=== PATIENT | male | born 1940 | race Caucasian/White ===

== ENCOUNTER → 2016-07-30 | Outpatient (CLI) | payer MEDICARE, OTHER ==
[~2016-07-30] MED LIST: ASPIRIN 81MG TA81 MG PO; METFORMIN500 MG PO; PREDNISONE 20MG20 MG PO; PROTONIX 40MG T40 MG PO; TYLENOL W/CODEI1 TA2 PO
[2016-07-30 13:22] LABS: HEMOGLOBIN 16.8 g/dL (14.1-18.0); LYMPH # 1.8 K/mm3 (0.7-4.5)
--- NOTE | 2016-07-30 13:57 | RADIOLOGY REPORT PS360 ---
FOOT-LT-3 VIEWS HISTORY: LEFT FOOT PAIN ORDERING PHYSICIAN: SIXTO WYATT APRN PATIENT AGE: 75 years COMPARISON: None FINDINGS: No fracture or dislocation. No lytic or blastic change. Minimal osteoarthritic changes are present at the first metatarsophalangeal joint. No lytic or blastic change no erosive changes. Small calcaneal spur incidentally noted. Mild spurring is present at the tarsometatarsal junction seen on the lateral view. Generalized vascular calcifications also noted. IMPRESSION: 1. Mild osteoarthritic changes, no acute finding
== END ==
LOC: LAB 13:12
PROVIDERS: Nurse Practitioner Family
DX: M79.672 Pain in left foot (principal)

== ENCOUNTER → 2016-12-25 | Outpatient (CLI) | payer MEDICARE, OTHER ==
--- NOTE | 2016-12-25 11:47 | CARDIOVASCULAR REPORT ---
"Venous Exam Indications: 782.3 Edema. IMPRESSIONS 1. There is no evidence of significant Reflux. 2. No evidence of deep or superficial vein thrombosis involving the right lower extremity Right lower extremity venous duplex evaluation. Doppler flow study including spectral analysis, color and reyes scale imaging. Location: Vascular laboratory. Patient status: Outpatient. Tables: Venous flow and imaging: + +-------+ + |Location |Overall|Flow properties | + +-------+ + |Right common femoral |Patent |Normal phasicity; spontaneous; | | | |normal augmentation; compressible| + +-------+ + |Right saphenofemoral junction|Patent |Compressible | + +-------+ + |Right profunda femoral |Patent |Compressible | + +-------+ + |Right femoral |Patent |Normal phasicity; spontaneous; | | | |normal augmentation; compressible| + +-------+ + |Right greater saphenous |Patent |Normal phasicity; spontaneous; | | | |normal augmentation; compressible| + +-------+ + |Right popliteal |Patent |Normal phasicity; spontaneous; | | | |normal augmentation; compressible| + +-------+ + |Right posterior tibial |Patent |Compressible | + +-------+ + |Right peroneal |Patent |Compressible | + +-------+ + |Right gastrocnemius |Patent |Compressible | + +-------+ + |Right soleal |Patent |Compressible | + +-------+ + (Report amended ) Electronically signed by: Rashi Mobley [id number]"
== END ==
LOC: RT 10:54
DX: R60.9 Edema, unspecified (principal); M79.604 Pain in right leg

== ENCOUNTER → 2017-01-09 | Outpatient (CLI) | payer MEDICARE, OTHER ==
--- NOTE | 2017-01-09 13:09 | RADIOLOGY REPORT PS360 ---
History and Indications: Diabetes, chest pain, abnormal EKG. Procedure: Patient received a 0.4 mg of Lexiscan, resting heart rate was 69 bpm, resting blood pressure 178/96, with Lexiscan maximum heart rate achieved was 94 bpm which is less than 85% of the maximum predicted heart rate, and a blood pressure 167/90, with Lexiscan patient complained of shortness of breath, discomfort. Electrocardiogram: Resting electrocardiogram showed sinus rhythm, with Lexiscan there is less than 1.[address] segment depression noted from the baseline EKG. The EKG portion of the Lexiscan Myoview is nondiagnostic. Cardiac stress and resting SPECT images: Cardiac stress and rest spect images were obtained using technetium 99 Myoview 10.9 mCi at rest and 32.4 mCi at stress, gated SPECT further analysis of segmental wall motion and calculation of the ejection fraction. Cardiac stress and rest SPECT images show a mild fixed defect in the anterior wall with normal contractility in the gated is likely secondary to soft tissue attenuation from the diaphragm, no reversible ischemia seen. The computer derived ejection fraction is 59% with no obvious regional wall motion abnormality, right ventricle is normal size and contractility. Conclusion: 1. The EKG portion of the Lexiscan Myoview is nondiagnostic. 2. No obvious scintigraphic evidence of reversible ischemia seen. Computer derived ejection fraction is 59% no obvious regional wall motion abnormality, right ventricle is normal size and contractility.
== END ==
LOC: RAD 07:00
DX: R07.9 Chest pain, unspecified (principal); R94.31 Abnormal electrocardiogram [ECG] [EKG]; E11.9 Type 2 diabetes mellitus without complications
CPT/HCPCS: A9502; J2785

== ENCOUNTER → 2017-01-23 | Outpatient (CLI) | payer MEDICARE, OTHER ==
--- NOTE | 2017-01-23 14:42 | RADIOLOGY REPORT PS360 ---
US [id number] HISTORY: PROTIENURIA ORDERING PHYSICIAN: Precious Hernandez APRN PATIENT AGE: 76 years COMPARISON: None FINDINGS: RIGHT KIDNEY:Unremarkable. Normal size and echogenicity. No hydronephrosis. 11 x 5 x 6 cm. Mild cortical thinning. There is a 4 x 3 cm cyst along the lower pole which appears benign. LEFT KIDNEY:Unremarkable. No hydronephrosis. Normal size and echogenicity. 10 x 6 x 5 cm with cortical thinning. Increased echogenicity is present in the upper pole and mid polar region which could be due to underlying stones or ossification. No hydronephrosis. OTHER FINDINGS: No other pertinent findings IMPRESSION: 1. No hydronephrosis. 2. Mild bilateral cortical thinning. 3. 4 cm right renal cyst. 4. Possible left nephrolithiasis
== END ==
LOC: RAD 12:43
DX: R80.9 Proteinuria, unspecified (principal)